=== PATIENT | female | born 1985 | race Two or more races ===

== ENCOUNTER 2024-12-15 00:44 | Emergency (ER) | payer OTHER ==
[~2024-12-15] VITALS: Ht 157.5 cm; Wt 70.8 kg
[2024-12-15] MEDS ORDERED: PROMETHAZINE HCL 50 MG/ML AMPUL IM STA (01:18)
[2024-12-15] MEDS ORDERED: FAMOTIDINE/PF 20 MG/2 ML VIAL IV PUSH STA (01:18)
[2024-12-15] MEDS ORDERED: FAMOTIDINE/PF 20 MG/2 ML VIAL ONE (01:22)
[2024-12-15] MEDS ORDERED: PROMETHAZINE HCL 50 MG/ML AMPUL IM ONE (01:22)
[2024-12-15] MEDS ORDERED: 0.9 % SODIUM CHLORIDE 500 ML IV ONE (01:30)
[2024-12-15 02:04] LABS: AMYLASE 36 U/L (25-115); LIPASE 33 U/L (13-75)
[2024-12-15] MEDS ORDERED: ZOFRAN8 MG PO (02:48)
[2024-12-15] MEDS ORDERED: CHLORHEXIDINE GLUCONATE 120 ML BOTTLE TOP ONE (03:56)
== END 2024-12-15 02:57 ==
LOC: ER 00:44
PROVIDERS: General Practice
DX: K21.9 Gastro-esophageal reflux disease without esophagitis (principal); R10.9 Unspecified abdominal pain